=== PATIENT | female | born 1950 | race Caucasian/White ===

== ENCOUNTER 2018-04-23 07:50 | Outpatient (CLI) | payer OTHER | END 2018-04-23 07:51 | disposition home or self-care (01) | LOC: BICMAMMO 07:50 | PROVIDERS: ATTEND Obstetrics & Gynecology | DX: Z12.31 Encounter for screening mammogram for malignant neoplasm of breast (principal); R92.1 Mammographic calcification found on diagnostic imaging of breast | CPT/HCPCS: 77063; 77067 ==

== ENCOUNTER 2018-05-06 09:15 | Outpatient (CLI) | payer MEDICARE | END 2018-05-06 09:16 | disposition home or self-care (01) | LOC: BICMAMMO 09:15 | PROVIDERS: ATTEND Obstetrics & Gynecology | DX: R92.1 Mammographic calcification found on diagnostic imaging of breast (principal) | CPT/HCPCS: 77065; G0279 ==

== ENCOUNTER → 2018-06-06 | Day surgery (SDC) | payer MEDICARE ==
--- NOTE | 2018-06-06 10:48 | MMO ---
STEREOTACTIC BIOPSY OF RIGHT BREAST: CLINICAL HISTORY: Indeterminate calcifications of upper in right breast quadrant. PROCEDURE: Informed consent was obtained. The patient was escorted to the procedure suite and placed into a pro ne position on the stereotactic table with the right breast in compression. Stereotactic coordinates were performed at the site of the calcifications. The right breast was then prepped and draped in a standard sterile fashion and topical anesthesia was achieved with buffered 1% Lidocaine. A small sk in incision was made through which a 10-gauge vacuum-assist stereotactic needle was advanced to the l eading edge of the calcifications, confirmed with mammographic imaging. The needle was then deployed into the site of calcifications and subsequently 6 core specimens were acquired. These specimens we re then radiographed which did reveal calcifications of interest within the radiographic specimens. The needle was removed. Biopsy marking clip as then advanced and deployed within the site of biopsy, confirmed with procedural mammographic imaging. Subsequently, all devices were then removed from th e patient. There were no procedural complications and the patient tolerated the procedure well witho ut evidence of complication. Subsequently, the patient underwent post procedural mammograms. Reference separate report for josi garcia. IMPRESSION: Technically successful stereotactic biopsy of right breast. Pathology results are pending. The derek ent will be notified of the results when they are received. POS: [facility]
--- NOTE | 2018-06-06 15:22 | MMO ---
DIAGNOSTIC RIGHT MAMMOGRAM: Date: 06/06/18 CLINICAL HISTORY: Status post stereotactic biopsy of right breast. FINDINGS: There are scattered fibroglandular elements of the right breast. There is post biopsy alteration invo lving the upper inner right breast, middle depth, with an adjacent marking clip. The prior calcificat ions of interest have been predominantly removed status post stereotactic biopsy. IMPRESSION: Status post stereotactic biopsy of right breast with clip placement. POS: [facility]
--- NOTE | 2018-06-06 15:23 | MMO ---
SPECIMEN RADIOGRAPH: Date: 06/06/18 CLINICAL INDICATION: Status post stereotactic biopsy for calcifications of the upper inner right breast. FINDINGS: Radiographic imaging of specimens from stereotactic biopsy reveals calcifications of interest within the radiographed specimens. IMPRESSION: Radiographic specimen imaging of stereotactic biopsy reveals calcification of interest. POS: [facility]
== END ==
LOC: MAMMO 06:44
PROVIDERS: ATTEND Obstetrics & Gynecology
PROC: 0HBT3ZX Excision of Right Breast, Percutaneous Approach, Diagnostic (ICD-10-PCS; principal; 2018-06-06)
DX: D05.11 Intraductal carcinoma in situ of right breast (principal); Z79.899 Other long term (current) drug therapy
CPT/HCPCS: 19081; 76098; 88305; 88341; 88342

== ENCOUNTER 2018-06-28 11:24 | Outpatient (CLI) | payer MEDICARE ==
[2018-06-28 12:31] LABS: #Basophils 0.1 thou/uL (0.0-0.2); #Eosinphils 0.3 thou/uL (0.0-0.7); #Lymphocytes 2.1 thou/uL (1.20-3.40); #Monocytes 0.5 thou/uL (0.11-0.59); #Neutrophils 4.8 thou/uL (1.40-6.50); %Eosinophils 3.5 % (0.0-10.0); %Lymphocytes 26.6 % (21.0-51.0); Hemoglobin 13.6 g/dL (12.0-16.0); Mean Corpuscular HGB CONC 32.1 g/dL (32.0-36.0); Mean Corpuscular Hemoglobin 29.6 pg (27.0-31.0); Mean Corpuscular Volume 92.2 fL (78.0-98.0); Mean Platelet Volume 9.2 fL (7.4-10.4); Platelet Count 252 thou/uL (130-400); RBC Distribution Width 12.2 % (11.5-14.5); White Blood Cell (WBC) Count 7.7 thou/uL (4.8-10.8)
[2018-06-28 12:55] LABS: Anion Gap 9 mmol/L (10-20); BUN (Urea Nitrogen) 15 mg/dL (9.8-20.1); Calc. Creatinine Clearance 0 mL/min (70-130); Calcium 9.2 mg/dL (7.8-10.44); Carbon Dioxide 26 mmol/L (23-31); Chloride 108 mmol/L (98-107); Estimated GFR-MDRD 67; Glucose 88 mg/dL (80-115); Potassium 4.2 mmol/L (3.5-5.1); Sodium 139 mmol/L (136-145)
--- NOTE | 2018-06-28 16:48 | EKG ---
Test Reason : Blood Pressure : / mmHG Vent. Rate : 071 BPM Atrial Rate : 071 BPM P-R Int : 154 ms QRS Dur : 082 ms QT Int : 390 ms P-R-T Axes : 048 047 040 degrees QTc Int : 423 ms Normal sinus rhythm Nonspecific T wave abnormality Abnormal ECG When compared with ECG of 09-JUN-2016 16:28, No significant change was found Confirmed by DR. Mena OLIVIER ([id number]) on 06/28/2018 4:47:40 PM Referred By: AYAKA Confirmed By:DR. Mena OLIVIER
== END 2018-06-28 11:25 | disposition home or self-care (01) ==
LOC: LABBT 11:24
PROVIDERS: ATTEND Surgery
DX: Z01.812 Encounter for preprocedural laboratory examination (principal); D05.11 Intraductal carcinoma in situ of right breast
CPT/HCPCS: 80048; 85025; 93005; 93010

== ENCOUNTER 2018-07-05 06:49 | Day surgery (SDC) | payer MEDICARE ==
[2018-06-28 11:46] VITALS: BMI 43.9
[2018-07-05] MEDS ORDERED: CEFAZOLIN 2 GM/50 ML BAG ONE (08:44)
[2018-07-05] MEDS ORDERED: Lidocaine 2% PF 5 ML VIAL ONE (10:45)
[2018-07-05] MEDS ORDERED: Bupivacaine/Epinephrine 0.25% 30 ML VIAL ONE (10:45)
[2018-07-05] MEDS ORDERED: Fentanyl 100 MCG/2 ML VIAL ONE (10:48)
--- NOTE | 2018-07-05 12:07 | MMO ---
MAMMOGRAPHIC GUIDED NEEDLE LOCALIZATION RIGHT BREAST MASS: HISTORY: Right breast cancer. FINDINGS: After explaining the procedure and answering all questions, the mass and localization clip in the sup erior aspect of the left breast was visualized. Sterile technique, buffered local anesthesia, and ma mmographic guidance, and a medial approach were used to carefully advance a [place] needle and wire thr ough the posterior aspect of the mass. Final images were obtained, showing the mass and localization clip approximately 2 cm from the needle clip. The patient tolerated the procedure well and was transferred to day surgery in good condition. IMPRESSION: Technically successful needle localization right breast mass. POS: [facility]
[2018-07-05] MEDS ORDERED: Lidocaine 1% PF 5 ML VIAL ONE (12:42)
[2018-07-05] MEDS ORDERED: Ondansetron PF 4 MG/2 ML Vial ONE (12:42)
[2018-07-05] MEDS ORDERED: Dexamethasone 20 MG/5 ML VIAL ONE (12:42)
[2018-07-05] MEDS ORDERED: Ketorolac Tromethamine 30 MG/ML VIAL ONE (12:42)
[2018-07-05] MEDS ORDERED: PROPOFOL 200 MG/20 ML VIAL ONE (12:42)
--- NOTE | 2018-07-05 13:00 | OP ---
DATE OF PROCEDURE: 07/05/2018 PREOPERATIVE DIAGNOSIS: Right breast ductal carcinoma in situ. POSTOPERATIVE DIAGNOSIS: Right breast ductal carcinoma in situ. PROCEDURE: Right breast partial mastectomy after needle localization. SURGEON: Ashwin Amado M.D. ANESTHESIA: General. ESTIMATED BLOOD LOSS: Minimal. COMPLICATIONS: None. SPECIMEN: Right breast marked with 2 short superior, 1 long lateral and sent to path for final diagn osis. Additional margins superior lateral, inferior posterior sent. The clip from the previous biop sy is in the specimen. TECHNIQUE: The patient underwent needle localization preoperative, taken to the operating room and l aid supine on the operating room supine on the table. After general anesthetic was obtained, the rig ht breast is prepped and draped in a sterile fashion. Transverse incision made near entrance of need le localization wire. Flaps were raised inferolaterally around the localization wire. The needle lo calization wire was near the lateral posterior edge of the excision. The specimen clip was in the sp ecimen, but additional margins were taken superiorly, laterally, inferior medially and a stitch was p laced on the new margin. Meticulous hemostasis was obtained. The wound was irrigated. Local anesth etic was applied. The wound is closed using 3-0 Vicryls, 4-0 Monocryl, and Dermabond. The patient i s en route to recovery in stable condition. All instrument counts, needle counts, lap counts are cor rect.
[2018-07-05] MEDS ORDERED: HYDROcodone/Acetaminophen 5/325 mg Tablet ONE (13:20)
--- NOTE | 2018-07-05 14:15 | MMO ---
SURGICAL SPECIMEN MAMMOGRAPHY: Date: 07/05/18 HISTORY: Breast cancer. FINDINGS/IMPRESSION: Mammographic evaluation of the surgical specimen obtained by Dr. Amado shows the localization needl e and wire, the hyperdense mass, and the localization clip to be present. POS: [facility]
== END 2018-07-05 14:30 | disposition home or self-care (01) ==
LOC: SDC 06:49
PROVIDERS: ATTEND Surgery
PROC: 0HBT0ZZ Excision of Right Breast, Open Approach (ICD-10-PCS; principal; 2018-07-05)
DX: D05.11 Intraductal carcinoma in situ of right breast (principal); N60.31 Fibrosclerosis of right breast; I10 Essential (primary) hypertension; Z79.899 Other long term (current) drug therapy; Z88.0 Allergy status to penicillin; Z88.8 Allergy status to other drugs, medicaments and biological substances
CPT/HCPCS: 19281; 76098; 88307; J1100; J1885; J2001; J2405; J2704; J3010

== ENCOUNTER 2024-10-02 11:00 | Outpatient (CLI) | payer MEDICARE | END 2024-10-02 11:01 | disposition home or self-care (01) | LOC: PET 11:00 | DX: C54.1 Malignant neoplasm of endometrium (principal); N95.0 Postmenopausal bleeding; N13.30 Unspecified hydronephrosis; N83.8 Other noninflammatory disorders of ovary, fallopian tube and broad ligament | CPT/HCPCS: 78815; A9552 ==

== ENCOUNTER 2024-10-02 13:42 | Outpatient (CLI) | payer MEDICARE | END 2024-10-02 13:43 | disposition home or self-care (01) | LOC: SCSMRI 13:42 | DX: C54.1 Malignant neoplasm of endometrium (principal); N95.0 Postmenopausal bleeding; N83.8 Other noninflammatory disorders of ovary, fallopian tube and broad ligament | CPT/HCPCS: 36415; 72197; 78815; 82565 ×2; A9552 ==

== ENCOUNTER 2025-04-29 09:30 | Outpatient (CLI) | payer MEDICARE | END 2025-04-29 09:31 | disposition home or self-care (01) | LOC: PET 09:30 | PROVIDERS: ATTEND Physician Assistant | DX: C54.1 Malignant neoplasm of endometrium (principal); N95.0 Postmenopausal bleeding | CPT/HCPCS: 78815; A9552 ==